=== PATIENT | female | born 1990 | race Caucasian/White ===

== ENCOUNTER 2020-04-19 15:27 | Emergency (ER) | payer OTHER ==
[~2020-04-19] VITALS: Ht 170.1 cm; Wt 101.8 kg
--- NOTE | 2020-04-19 17:13 | ED Abdominal Pain ---
General Chief Complaint: Abdominal/GI Problems Stated Complaint: UPPER ABDOMINAL PAIN Nursing Triage Note: TO ED C/O LOW ABD PAIN FOR 5 DAYS WORSE WITH MOVEMENT. DENIES UTI SYMPTOMS. Sepsis Screen: No Definite Risk Source of Information: Patient Exam Limitations: No Limitations (JOSE HOFFMANN STUDENT) History of Present Illness Date Seen by Provider: Apr 19, 2020 Time Seen by Provider: 16:55 Initial Comments Ms. Quiroz is a 29 y/o F who presented to ED with epigastric abdominal pain. She said her pain started 5 days ago and rates it as a 6/10 at a constant level since then. She reports that the pain worsens to an 8/10 when moving around and sometimes after eating food. She said the pain initially woke her up in the middle of the night due to its severity. She said she went to ID clinic today for the pain who sent her to urgent care who recommended she go to the ED for a RUQ abdominal ultrasound. She denies nausea, vomiting, change in appetite, fever, lightheadedness, GONZALEZ or any other symptoms at this time. She has said not john has helped the pain and denies any radiation of the pain. She said her PMH includes PCOS, 2 c-sections and hyperprolactinemia. She is taking fluoxetine, topirimate, oral contraceptive and another unknown medication daily. (JOSE HOFFMANN MED STUDENT) Allergies and Home Medications Allergies Coded Allergies: NSAIDS (Non-Steroidal Anti-Inflamma (Verified Adverse Reaction, Unknown, 04/19/20) REACTION WITH MEDS TAKING. Patient Home Medication List Home Medication List Reviewed: Yes (JOSE HOFFMANN MED STUDENT) Review of Systems Review of Systems Constitutional: No chills, No diaphoresis, No fever EENTM: No Symptoms Reported Respiratory: Denies Cough, Denies Shortness of Air Cardiovascular: Denies Chest Pain, Denies Lightheadedness Gastrointestinal: Denies Abdomen Distended; Abdominal Pain (TTP at upper abdomen and RUQ); Denies Blood Streaked Stools, Denies Constipated, Denies Diarrhea, Denies Nausea, Denies Vomiting Genitourinary: Denies Flank Pain, Denies Hematuria Musculoskeletal: no symptoms reported Skin: No pruritus, No rash Psychiatric/Neurological: Denies Headache, Denies Weakness Endocrine: No Symptoms Reported (JOSE HOFFMANN MED STUDENT) Past Fntztke-Sengaq-Kmjwya Hx Patient Social History Alcohol Use: Occasionally Uses Recreational Drug Use: Yes Smoking Status: Current Everyday Smoker Recent Foreign Travel: No Contact w/Someone Who Travel: No Recent Infectious Disease Expo: No (JOSE HOFFMANN [employer] STUDENT) Past Medical History Surgeries: Yes (HERNIA) Section Respiratory: Yes Sleep Apnea Cardiac: No Neurological: No Genitourinary: No Gastrointestinal: No Musculoskeletal: No Endocrine: No HEENT: No Cancer: No Psychosocial: No (JOSE HOFFMANN [employer] STUDENT) Physical Exam Vital Signs Vital Signs - First Documented 04/19/20 16:31 Temp 36.1 Pulse 78 Resp 18 B/P (MAP) 145/90 (108) Pulse Ox 99 O2 Delivery Room Air (FRANK HEATH MD) Vital Signs Capillary Refill : Less Than 3 Seconds (JOSE HOFFMANN [employer] STUDENT) Height/Weight/BMI Height: '" Weight: lbs. oz. kg; 35.00 BMI Method: General Appearance: WD/WN, no apparent distress HEENT: PERRL/EOMI, normal ENT inspection, pharynx normal Neck: full range of motion, supple, normal inspection Respiratory: chest non-tender, lungs clear, normal breath sounds, no respiratory distress, no accessory muscle use Cardiovascular: regular rate, rhythm, no edema, no murmur Gastrointestinal: normal bowel sounds, soft, no organomegaly, no pulsatile mass, tenderness (TTP at RUQ and epigastric area worse at epigastric area. Slightly positive Minor sign. Pain on percussion as well in epigastric and RUQ abdomen. ) Extremities: normal range of motion, normal inspection, no pedal edema Back: no CVA tenderness Neurologic/Psychiatric: no motor/sensory deficits, alert, normal mood/affect, oriented x 3 Skin: normal color, warm/dry (JOSE HOFFMANN [employer] STUDENT) Progress/Results/Core Measures Results/Orders Lab Results Laboratory Tests Test 04/19/20 17:50 04/19/20 17:56 Range/Units Urine Color YELLOW Urine Clarity CLEAR Urine pH 6.0 5-9 Urine Specific [place] 1.015 L 1.016-1.022 Urine Protein NEGATIVE NEGATIVE Urine Glucose (UA) NEGATIVE NEGATIVE Urine Ketones NEGATIVE NEGATIVE Urine Nitrite NEGATIVE NEGATIVE Urine Bilirubin NEGATIVE NEGATIVE Urine Urobilinogen 0.2 < = 1.0 MG/DL Urine Leukocyte Esterase NEGATIVE NEGATIVE Urine RBC (Auto) NEGATIVE NEGATIVE Urine RBC NONE /HPF Urine WBC NONE /HPF Urine Squamous Epithelial Cells 0-2 /HPF Urine Crystals PRESENT H /LPF Urine Amorphous Sediment RARE CARLOS URATES H /LPF Urine Bacteria NEGATIVE /HPF Urine Casts NONE /LPF Urine Mucus NEGATIVE /LPF Urine Culture Indicated NO White Blood Count 12.7 H 4.3-11.0 10^3/uL Red Blood Count 4.34 3.80-5.11 10^6/uL Hemoglobin 13.9 11.5-16.0 g/dL Hematocrit 42 35-52 % Mean Corpuscular Volume 97 80-99 fL Mean Corpuscular Hemoglobin 32 25-34 pg Mean Corpuscular Hemoglobin Concent 33 32-36 g/dL Red Cell Distribution Width 12.6 10.0-14.5 % Platelet Count 277 130-400 10^3/uL Mean Platelet Volume 10.6 9.0-12.2 fL Immature Granulocyte % (Auto) 0 % Neutrophils (%) (Auto) 68 42-75 % Lymphocytes (%) (Auto) 26 12-44 % Monocytes (%) (Auto) 4 0-12 % Eosinophils (%) (Auto) 1 0-10 % Basophils (%) (Auto) 1 0-10 % Neutrophils # (Auto) 8.7 H 1.8-7.8 10^3/uL Lymphocytes # (Auto) 3.3 1.0-4.0 10^3/uL Monocytes # (Auto) 0.5 0.0-1.0 10^3/uL Eosinophils # (Auto) 0.1 0.0-0.3 10^3/uL Basophils # (Auto) 0.1 0.0-0.1 10^3/uL Immature Granulocyte # (Auto) 0.1 0.0-0.1 10^3/uL Sodium Level 137 135-145 MMOL/L Potassium Level 3.9 3.6-5.0 MMOL/L Chloride Level 103 98-107 MMOL/L Carbon Dioxide Level 23 21-32 MMOL/L Anion Gap 11 5-14 MMOL/L Blood Urea Nitrogen 12 7-18 MG/DL Creatinine 0.95 0.60-1.30 MG/DL Estimat Glomerular Filtration Rate > 60 BUN/Creatinine Ratio 13 Glucose Level 85 70-105 MG/DL Calcium Level 9.1 8.5-10.1 MG/DL Corrected Calcium 8.9 8.5-10.1 MG/DL Total Bilirubin 0.4 0.1-1.0 MG/DL Aspartate Amino Transf (AST/SGOT) 18 5-34 U/L Alanine Aminotransferase (ALT/SGPT) 21 0-55 U/L Alkaline Phosphatase 60 40-136 U/L C-Reactive Protein High Sensitivity 1.42 H 0.00-0.50 MG/DL Total Protein 7.4 6.4-8.2 GM/DL Albumin 4.2 3.2-4.5 GM/DL Lipase 27 8-78 U/L Serum Test, Qualitative NEGATIVE NEGATIVE (FRANK HEATH MD) My Orders Orders - FRANK HEATH MD Ondansetron Oral Dissolve Tab (Zofran (04/19/20 17:15) Lidocaine 2% Viscous 15 Ml (Xylocaine Vi (04/19/20 17:15) Antacid Suspension (Mylanta Suspension (04/19/20 17:15) Cbc With Automated Diff (04/19/20 17:44) Comprehensive Metabolic Panel (04/19/20 17:44) Hs C Reactive Protein (04/19/20 17:44) Hcg,Qualitative Serum (04/19/20 17:44) Lipase (04/19/20 17:44) Ua Culture If Indicated (04/19/20 17:44) Ed Iv/Invasive Line Start (04/19/20 17:44) (FRANK HEATH MD) Medications Given in ED Current Medications Medications Dose Ordered Sig/Martine Route Start Time Stop Time Status Last Admin Dose Admin Al Hydrox/Mg Hydrox/Simethicone 30 ml ONCE ONCE PO 04/19/20 17:15 04/19/20 17:16 DC 04/19/20 17:27 30 ML Lidocaine HCl 15 ml ONCE ONCE PO 04/19/20 17:15 04/19/20 17:16 DC 04/19/20 17:27 15 ML Ondansetron HCl 4 mg ONCE ONCE SL 04/19/20 17:15 04/19/20 17:16 DC 04/19/20 17:13 4 MG (FRANK HEATH MD) Vital Signs/I&O 04/19/20 04/19/20 16:31 19:09 Temp 36.1 Pulse 78 68 Resp 18 18 B/P (MAP) 145/90 (108) 141/100 Pulse Ox 99 98 O2 Delivery Room Air Room Air (FRANK HEATH MD) Blood Pressure Mean: 108 Progress Progress Note : Progress Note Ms. Quiroz is a 29 y/o F who presents to ED with epigastric and RUQ abdominal pain of 5 day duration. Differential includes but not limited to: pancreatitis, gastritis, cholecyst itis, choledocholithiasis, or acid reflux. We will start with a GI cocktail to see if that alleviates her pain. If not then we will order CBC, CMP and CRP. If there are signs concerning for acute cholecystitis then we will order CT abdomen as we are not able to attain ultrasound at this hour. If no acute signs of cholecystitis then we can schedule an outpatient ultrasound tomorrow morning to assess for gallstones. Update 1742: After GI cocktail patient does not report any improvement in pain. We will go ahead and get CBC, CMP, UA, test, CRP and lipase. (JOSE HOFFMANN MED STUDENT) Departure Impression Primary Impression: Epigastric pain Additional Impression: RUQ pain Disposition: 01 HOME, SELF-CARE Condition: Stable Departure-Patient Inst. Decision time for Depature: 18:58 (FRANK HEATH MD) Patient Instructions: Severe Abdominal Pain, Adult (DC) Add. Discharge Instructions: Adhere to a clear liquid diet until 1:30 tomorrow morning. Then do not eat or drink in preparation for ultrasound. Return to the hospital at 7:30 and check- in at the registration area for an ultrasound study. After the ultrasound stay in the ultrasound department until the report is called to the ER physician and you are given further instructions. Do not take any Tylenol, ibuprofen, or other pain relievers as this may mask your symptoms in the meantime. If you have worsening symptoms through the night including development of severe pain, uncontrolled vomiting, or fever, return to the emergency room. All discharge instructions reviewed with patient and/or family. Voiced understanding. I have personall interviewed and examined this patient along with the Jose durán, 4. I agree with MS4 documentation including history, physical, and assessments. This patient presents with fairly persistent epigastric and right upper quadrant pain over the past 5 days. It is somewhat affected by eating and drinking. GI cocktail did not improve her pain. Labs were then pursued. She had a mild elevation in WBC and CRP. I discussed the risks and benefits of CT imaging including risk of radiation exposure and the benefits of prompt diagnosis. Patient elects to wait for an ultrasound in the morning and commits to returning if symptoms worsen. See discharge instructions. An outpatient order form for the ultrasound was provided. Exam: General: Alert, oriented, no acute distress Heart: Regular rate and rhythm without murmur Lungs: Clear to auscultation bilaterally with normal effort Abdomen: Soft, tender in the epigastrium and right upper quadrant, positive Minor sign, maximum point of tenderness is in the epigastrium below the sternal notch. Neuropsych: Alert, oriented, no acute distress (RFANK HEATH MD) JOSE HOFFMANN MED STUDENT Apr 19, 2020 17:13 FRANK HEATH MD Apr 19, 2020 19:00
[2020-04-19] MEDS ORDERED: LIDOCAINE 2% VISCOUS 15 ML UDC PO ONE (17:15)
[2020-04-19] MEDS ORDERED: ONDANSETRON 4 MG (ZOFRAN) ORAL DISSOLVE TAB SL ONE (17:15)
[2020-04-19] MEDS ORDERED: ANTACID SUSP 30 ML UDC (MYLANTA) PO ONE (17:15)
[2020-04-19 17:55] LABS: BILIRUBIN,URINE NEGATIVE (NEGATIVE); CLARITY,URINE CLEAR; COLOR,URINE YELLOW; GLUCOSE, URINE (UA) NEGATIVE (NEGATIVE); KETONES,URINE NEGATIVE (NEGATIVE); LEUKOCYTE ESTERASE ,URINE NEGATIVE (NEGATIVE); NITRITE,URINE NEGATIVE (NEGATIVE); PROTEIN,URINE NEGATIVE (NEGATIVE)
[2020-04-19 18:04] LABS: BASOPHILS # (AUTO) 0.1 10^3/uL (0.0-0.1); BASOPHILS % (AUTO) 1 % (0-10); EOSINOPHILS # (AUTO) 0.1 10^3/uL (0.0-0.3); EOSINOPHILS % (AUTO) 1 % (0-10); HEMATOCRIT 42 % (35-52); HEMOGLOBIN 13.9 g/dL (11.5-16.0); LYMPHOCYTES # (AUTO) 3.3 10^3/uL (1.0-4.0); LYMPHOCYTES % (AUTO) 26 % (12-44); MEAN CORPUSCULAR HEMOGLOBIN 32 pg (25-34); MEAN CORPUSCULAR HGB CONC 33 g/dL (32-36); MEAN CORPUSCULAR VOLUME 97 fL (80-99); MEAN PLATELET VOLUME 10.6 fL (9.0-12.2); MONOCYTES # (AUTO) 0.5 10^3/uL (0.0-1.0); MONOCYTES % (AUTO) 4 % (0-12); NEUTROPHILS # (AUTO) 8.7 10^3/uL (1.8-7.8); NEUTROPHILS % (AUTO) 68 % (42-75); PLATELET COUNT 277 10^3/uL (130-400); WHITE BLOOD COUNT 12.7 10^3/uL (4.3-11.0)
[2020-04-19 18:18] LABS: ALBUMIN 4.2 GM/DL (3.2-4.5)
[2020-04-19 18:19] LABS: CHLORIDE 103 MMOL/L (98-107); POTASSIUM 3.9 MMOL/L (3.6-5.0); SODIUM 137 MMOL/L (135-145)
[2020-04-19 18:20] LABS: CALCIUM 9.1 MG/DL (8.5-10.1)
[2020-04-19 18:21] LABS: GLUCOSE 85 MG/DL (70-105); TOTAL PROTEIN 7.4 GM/DL (6.4-8.2)
[2020-04-19 18:22] LABS: CARBON DIOXIDE 23 MMOL/L (21-32)
[2020-04-19 18:23] LABS: BILIRUBIN,TOTAL 0.4 MG/DL (0.1-1.0)
[2020-04-19 18:24] LABS: ALKALINE PHOSPHATASE 60 U/L (40-136)
[2020-04-19 18:25] LABS: CREATININE SERUM 0.95 MG/DL (0.60-1.30); GFR ESTIMATED > 60
[2020-04-19 18:26] LABS: BUN/CREATININE RATIO 13
[2020-04-19 18:28] LABS: AMORPHOUS SEDIMENT,UR RARE AMOR URATES /LPF; BACTERIA,URINE NEGATIVE /HPF
[2020-04-19 18:28] LABS: ALANINE AMINOTRANSFERASE 21 U/L (0-55); LIPASE 27 U/L (8-78)
[2020-04-19 18:33] LABS: SQUAMOUS EPITHELIAL CELL,UR 0-2 /HPF
[2020-04-19 19:09] VITALS: BP 141/100
== END 2020-04-19 19:09 | disposition home or self-care (01) ==
LOC: EDUNIT# 15:27 → ER 15:31
DX: R10.13 Epigastric pain (principal); F17.200 Nicotine dependence, unspecified, uncomplicated; Z88.6 Allergy status to analgesic agent
CPT/HCPCS: 36415; 80053; 81000; 83690; 84703; 85025; 86141

== ENCOUNTER → 2020-04-20 | Outpatient (CLI) | payer OTHER ==
--- NOTE | 2020-04-20 08:23 | Diagnostic Imaging Report ---
EXAMINATION: US Abdomen limited. TECHNIQUE: Multiple real-time grayscale images were obtained over the right upper quadrant in various projections. REASON FOR EXAM: Epigastric pain. Right upper quadrant pain. COMPARISON: None. FINDINGS: The liver demonstrates increased echogenicity throughout. There are no focal lesions. No intrahepatic biliary dilatation is present. The common bile duct is obscured due to overlying bowel gas. The main portal vein is hepatopedal. No ascites is seen in the upper abdomen. There is no evidence of cholelithiasis, gallbladder wall thickening or pericholecystic fluid. Sonographic Minor's sign is negative. The visualized portion of the head of the pancreas are within normal limits. The body and tail of the pancreas are not well visualized due to overlying bowel gas. The visualized portions of the IVC and aorta appear normal. The right kidney measures approximately 11.3 cm in length and has a normal appearance. IMPRESSION: 1. Hepatic steatosis. No focal hepatic lesions. 2. No cholelithiasis or acute cholecystitis. However, evaluation of the gallbladder and common bile duct is somewhat limited due to overlying bowel gas. Dictated by: Dictated on workstation # [id number]
== END ==
LOC: RAD 08:00
PROVIDERS: ATTEND Family Medicine
DX: K76.0 Fatty (change of) liver, not elsewhere classified (principal)
CPT/HCPCS: 76705

== ENCOUNTER → 2021-08-31 | Outpatient (CLI) | payer OTHER ==
--- NOTE | 2021-08-31 15:04 | Diagnostic Imaging Report ---
INDICATION: Palpable lump left breast. No prior mammograms are available for comparison. This is a baseline study. 2-D and 3-D bilateral diagnostic mammography was performed with CAD. Scattered fibroglandular densities are identified. No dominant mass or malignant-appearing microcalcifications are seen. A BB marker was placed at the area of palpable abnormality in the lower inner left breast. No underlying abnormality is detected. The axillae are unremarkable. IMPRESSION: BI-RADS 0. No mammographic features suspicious for malignancy are identified. Even so, directed sonographic interrogation of the area of palpable abnormality, left breast, is recommended and will be performed today. ACR BI-RADS Category 0: Incomplete. (Needs additional imaging evaluation). Result letter will be mailed to the patient. Note: At least 10% of breast cancer is not imaged by mammography. Dictated by: Dictated on workstation # [id number]
--- NOTE | 2021-08-31 16:07 | Diagnostic Imaging Report ---
INDICATION: Palpable lump in the lower inner left breast. COMPARISON: Correlation is made with diagnostic mammogram earlier the same day. EXAMINATION: Left breast ultrasound. FINDINGS: Sonographic interrogation of the area of lump in the left breast was performed. This corresponds to the 7:00 location, 8 cm from the nipple. There is a heterogeneous, mixed echogenicity just deep to the skin surface at the area of palpable abnormality measuring 13 mm x 5 mm x 10 mm. There is some associated vascularity along the periphery. No posterior acoustic enhancement or shadowing is identified. No discrete fluid collection or mass is identified. IMPRESSION: Small area of heterogeneity just deep to the skin surface at the 7:00 location of the left breast, 8 cm from the nipple. This corresponds to the palpable abnormality. This has the appearance of inflamed tissue but no discrete mass is identified. A follow-up ultrasound after course of therapy is recommended with repeat study in approximately two months to confirm clearing. ACR BI-RADS Category 3: Probably benign findings. Dictated by: Dictated on workstation # [id number]
== END ==
LOC: RAD 12:30
DX: N63.24 Unspecified lump in the left breast, lower inner quadrant (principal)
CPT/HCPCS: 76642; 77062; 77066

== ENCOUNTER → 2021-10-26 | Outpatient (CLI) | payer OTHER ==
--- NOTE | 2021-10-26 16:28 | Diagnostic Imaging Report ---
Indication: Patient had a subcutaneous nodule previously with erythema, tenderness, pain and some drainage. Clinically the symptoms have markedly improved if not resolved. She returns for followup. It is compared with ultrasound 08/31/2021. Isolated to the subcutaneous tissues at 7 o'clock, orientation of the left breast 8 cm from the nipple, there is now barely perceptible region of parenchymal distortion and vague hypoechogenicity. No residual fluid within this process. This is no longer hypervascular vascularized. It measures roughly 9 mm in maximal dimension, previously 10 mm. Its AP depth is lessened. Given the history and the appearance of the subcutaneous lesion, it likely reflects resolved inflammatory or infectious changes associated with sebaceous cyst previously. No adverse development. No findings of breast cancer. Impression: The nodule is much less well seen, its superficial and confined to the subcutaneous fat and no longer shows fluid composition and shows resolution of previous hypervascularity consistent with likely chronic sebaceous cyst, no longer superinfected. No adverse development. No findings of breast cancer. This requires no further imaging workup. Dictated by: Dictated on workstation # [id number]
== END ==
LOC: RAD 14:15
PROVIDERS: ATTEND Family Medicine
DX: N63.20 Unspecified lump in the left breast, unspecified quadrant (principal)
CPT/HCPCS: 76642

== ENCOUNTER 2023-03-23 22:01 | Emergency (ER) | payer OTHER ==
[~2023-03-23] VITALS: Ht 67 cm; Wt 101.8 kg
[2023-03-24] MEDS ORDERED: HYDROcodone/ACETAMINOPHEN 7.5 MG/325 MG TABLET PO STA (00:21)
[2023-03-24] MEDS ORDERED: LIDOCAINE/EPI 1%-1:200,000 (XYLOCAINE) 30 ML VIAL ONE (02:11)
[2023-03-24] MEDS ORDERED: Sulfamethoxazole/Trimethoprim DS TABLET PO STA (02:32)
--- NOTE | 2023-03-24 02:38 | ED Integumentary General ---
General Chief Complaint: Skin/Wound Problems Stated Complaint: BOIL IN VAG AREA Nursing Triage Note: PT AMBULATES TO ROOM #9 W/CC ABSCESS TO LEFT GROIN WITH ONSET 03/22/23. PT REPORTS ON THIS DAY AREA OF CONCERN BEGAN TO "LEAK YELLOW FLUID." PT REPORTS DISCOMFORT WHEN WALKING OR SITTING. PT DENIES FEVER OR CHILLS. Source: patient Exam Limitations: no limitations History of Present Illness Date Seen by Provider: Mar 24, 2023 Time Seen by Provider: 00:15 Initial Comments For the evaluation delayed due to multiple critical patients in the emergency department. Patient here with complaint of abscess to the left groin area that does occasionally drain but is much larger and painful right now. It is near the left labia but on the leg side of the groin. She has had cyst there previously. Denies fever or chills. States it does hurt and she is getting some nausea with pain but otherwise denies nausea and vomiting. Denies other concerns. Timing/Duration: other (Per quite a while but worse over the last week) Severity: moderate Location: extremities (Left upper) Possible Cause: no cause identified Associated Symptoms: edema Allergies and Home Medications Allergies Coded Allergies: NSAIDS (Non-Steroidal Anti-Inflamma (Verified Adverse Reaction, Unknown, 04/19/20) REACTION WITH MEDS TAKING. Patient Home Medication List Home Medication List Reviewed: Yes Review of Systems Review of Systems Constitutional: see HPI; No chills, No fever EENTM: no symptoms reported Respiratory: No cough, No short of breath Gastrointestinal: nausea; No vomiting Genitourinary: No dysuria Skin: see HPI, change in color, lesions Past Fhdyaet-Mhlccj-Ogfnlz Hx Patient Social History Tobacco Use?: Yes Tobacco type used: Cigarettes Smoking Status: Current Everyday Smoker Substance use?: Yes Substance type: Marijuana Alcohol Use?: Yes Alcohol Frequency: Rarely Pt feels they are or have been: No Past Medical History Surgeries: Yes (HERNIA) Section Respiratory: Yes Sleep Apnea Cardiac: No Neurological: No Genitourinary: No Gastrointestinal: No Musculoskeletal: No Endocrine: No HEENT: No Cancer: No Psychosocial: No Family Medical History Reviewed Nursing Family Hx No Pertinent Family Hx Physical Exam Vital Signs Vital Signs - First Documented 03/23/23 22:15 Temp 37.0 Pulse 102 Resp 17 B/P (MAP) 143/95 (111) Pulse Ox 98 O2 Delivery Room Air Capillary Refill : Less Than 3 Seconds General Appearance: WD/WN, no apparent distress Cardiovascular: regular rate, rhythm, no murmur Respiratory: lungs clear, normal breath sounds Gastrointestinal: non tender, soft Skin: warm/dry Skin Problem Location: lower extremities (Left upper aspect medial thigh near groin) Skin Problem Character: abscess (2 x 3 cm area of fluctuance surrounded by 4 cm of erythema), erythema Procedures/Interventions I&D : Site: Groin proximal thigh on the left Blade Size: 11 I & D Procedure: betadine prep, sterile drapes applied, sterile dressing applied, gauze wick placed, Wound Packing Packing/Drain: Idoform 1/2 Progress Prepped with Betadine and anesthetized with 1% lidocaine with epinephrine approximately 10 mL. Anesthesia obtained. Wound opened with 11 blade. Probed with Mary forceps and gauze. Culture obtained. Wound packed with half-inch iodoform and covered with sterile dressing. Tolerated procedure well with no complications. Progress/Results/Core Measures Results/Orders My Orders Orders - DANNY ABERNATHY MD Hydrocodone/Apap 7.5/325 Tab (Hydrocodon (03/24/23 00:21) Lidocaine/Epi 1% 1:200,00 (Xylocaine/Epi (03/24/23 02:11) Vital Signs/I&O 03/23/23 22:15 Temp 37.0 Pulse 102 Resp 17 B/P (MAP) 143/95 (111) Pulse Ox 98 O2 Delivery Room Air Blood Pressure Mean: 111 Progress Progress Note : Progress Note Seen and evaluated. Abscess noted to the left groin and this will need I&D. 0237: I&D complete as noted in progress note. Bactrim DS 1 tab p.o. after culture. Patient did receive hydrocodone 7.5/325 1 tab p.o. earlier due to pain and having to wait for procedure due to busy ER. Overall tolerated well. Discharged home with return precautions. Patient verbalized understanding of instructions and agreement with plan. Departure Impression Primary Impression: Abscess Disposition: 01 HOME, SELF-CARE Condition: Improved Departure-Patient Inst. Decision time for Depature: 02:38 Referrals: NO,LOCAL PHYSICIAN (PCP/Family) Primary Care Physician Patient Instructions: Abscess Incision and Drainage (DC) Add. Discharge Instructions: All discharge instructions reviewed with patient and/or family. Voiced understanding. Keep wick in place and wound. If this falls out you may replace it with new wick provided using Q-tip. Gently rinse wound twice daily with fresh water. Keep area clean otherwise. Take medications as directed. Return for worse pain, swelling, fever, increasing wound size or redness or other concerns as needed. You may take Tylenol/acetaminophen 1000 mg every 6-8 hours as needed for pain if you are not taking the prescribed pain medicine. Do not take both at the same time as they both have acetaminophen in them. You may take ibuprofen 600 mg every 8 hours as needed for pain as well. Scripts Sulfamethoxazole/Trimethoprim (Bactrim Ds Tablet) 1 Each Tablet 1 EACH PO BID, #14 TAB 0 Refills Prov: DANNY ABERNATHY MD 03/24/23 Hydrocodone/Acetaminophen (Hydrocodone-Acetamin 5-325 mg) 5 Mg-325 Mg Tablet 1 TAB PO Q6H PRN for PAIN-MODERATE (5-7) for 7 Days, #8 TAB 0 Refills Prov: DANNY ABERNATHY MD 03/24/23 DANNY ABERNATHY MD Mar 24, 2023 02:38
[2023-03-24] MEDS ORDERED: ACHD5005 PO (02:40)
[2023-03-24] MEDS ORDERED: SULF1TAB38 PO (02:40)
[2023-03-24 03:15] VITALS: BP 137/92
== END 2023-03-24 03:15 | disposition home or self-care (01) ==
LOC: EDUNIT# 22:01 → ER 22:03
DX: L02.416 Cutaneous abscess of left lower limb (principal); F17.210 Nicotine dependence, cigarettes, uncomplicated
CPT/HCPCS: 99283

== ENCOUNTER → 2023-05-14 | Outpatient (CLI) | payer OTHER ==
[~2023-05-14] MED LIST: ACHD5005 PO; SULF1TAB38 PO
--- NOTE | 2023-05-14 17:07 | Diagnostic Imaging Report ---
INDICATION: Routine screening. Comparison is made with prior mammogram from 08/31/2021. 2-D and 3-D bilateral screening mammography was performed with CAD. Scattered fibroglandular densities are identified bilaterally. The parenchymal pattern is stable. No mass or malignant appearing microcalcifications are identified. Axillae are unremarkable. IMPRESSION: No mammographic features suspicious for malignancy are identified. ACR BI-RADS Category 1: Negative. Result letter will be mailed to the patient. Note: At least 10% of breast cancer is not imaged by mammography. BI-RADS Category 1 Dictated by: Dictated on workstation # [id number]
== END ==
LOC: RAD 15:45
PROVIDERS: ATTEND Family Medicine
DX: Z12.31 Encounter for screening mammogram for malignant neoplasm of breast (principal)
CPT/HCPCS: 77063; 77067